=== PATIENT | male | born 1950 | race Two or more races ===

== ENCOUNTER 2016-09-13 00:30 | Emergency (ER) | payer MEDICARE, OTHER ==
[~2016-09-13] VITALS: Ht 175.3 cm; Wt 76.2 kg
[2016-09-13 00:30] VITALS: BP 152/92
[2016-09-13] MEDS ORDERED: IBUPROFEN 400 MG TABLET ONE (00:47)
[2016-09-13] MEDS ORDERED: IBUPROFEN 400 MG TABLET PO ONE (01:00)
== END 2016-09-13 02:05 | disposition home or self-care (01) ==
LOC: ER 00:36
DX: M79.662 Pain in left lower leg (principal); I10 Essential (primary) hypertension; V49.49XA Driver injured in collision with other motor vehicles in traffic accident, initial encounter; Y93.89 Activity, other specified; Y92.89 Other specified places as the place of occurrence of the external cause; Y99.9 Unspecified external cause status
CPT/HCPCS: 73552; 99284; A4606; Z7610; 73550-TC